=== PATIENT | female | born 1970 | race Caucasian/White ===

== ENCOUNTER 2017-01-07 05:31 | Inpatient (IN) | payer BC ==
[2017-01-07] MEDS ORDERED: ceFAZolin 2 GM in Premix Bag 1 BAG IV ONE (05:41)
[2017-01-07] MEDS ORDERED: Sodium Chloride 0.9% 10 ML Syringe FLUSH PRN (05:41)
[2017-01-07] MEDS ORDERED: Citric Acid/Sodium Citrate Solution 30 ML Cup PO SCH (05:45)
[2017-01-07] MEDS: Lactated Ringers 1,000 ML IV SCH ×2 (06:08→07:20)
[2017-01-07 06:34] LABS: CHLORIDE,CL 108 mmol/L (98-110); SODIUM,NA 136 mmol/L (136-146)
--- NOTE | 2017-01-07 07:28 | PCM.PREANE ---
Preanesthetic Assessment - Procedure Proposed Procedure: ; repeat - Anesthesia/Transfusion/Family Hx Anesthesia History: Prior Anesthesia Without Reaction Transfusion History: No Prior Transfusion(s) Intubation History: Unknown - Review of Systems General: No Symptoms Pulmonary: No Symptoms Cardiovascular: No Symptoms Gastrointestinal: Other (GERD of ) Neurological: No Symptoms Other: Reports: Diabetes (gestational - controlled wqith diet and glyburide), Depression, Anxiety - Physical Assessment Height: 5 ft 3 in Weight: 183 lb ASA Class: 3 Mental Status: Alert & Oriented x3 Airway Class: Mallampati = 1 Dentition: Reports: Normal Dentition Thyro-Mental Finger Breadths: 3 Mouth Opening Finger Breadths: 3 ROM/Head Extension: Full Lungs: Clear to auscultation, Normal respiratory effort Cardiovascular: Regular Rate, Regular Rhythm, No Murmurs - Lab Values: Laboratory Last Values WBC 10.51 K/uL (4.0-11.0) 01/07/17 06:03 RBC 4.74 M/uL (4.30-5.90) 01/07/17 06:03 Hgb 13.4 g/dL (12.0-16.0) 01/07/17 06:03 Hct 40.6 % (36.0-46.0) 01/07/17 06:03 MCV 85.7 fL (80.0-98.0) 01/07/17 06:03 MCH 28.3 pg (27.0-32.0) 01/07/17 06:03 MCHC 33.0 g/dL (31.0-37.0) 01/07/17 06:03 RDW Std Deviation 46.3 fl (28.0-62.0) 01/07/17 06:03 RDW Coeff of Kristin 15 % (11.0-15.0) 01/07/17 06:03 Plt Count 198 K/uL (150-400) 01/07/17 06:03 MPV 11.10 fL (7.40-12.00) 01/07/17 06:03 Nucleated RBC % 0.2 /100WBC 01/07/17 06:03 Nucleated RBCs # 0 K/uL 01/07/17 06:03 Sodium 136 mmol/L (136-146) 01/07/17 06:03 Potassium 4.0 mmol/L (3.5-5.1) 01/07/17 06:03 Chloride 108 mmol/L (98-110) 01/07/17 06:03 Carbon Dioxide 18 mmol/L (21-31) L 01/07/17 06:03 BUN 10 mg/dL (6.0-23.0) 01/07/17 06:03 Creatinine 0.7 mg/dL (0.6-1.5) 01/07/17 06:03 Est Cr Clr Drug Dosing 83.07 mL/min 01/07/17 06:03 Estimated GFR (MDRD) > 60.0 ml/min 01/07/17 06:03 Glucose 70 mg/dL (60-110) 01/07/17 06:03 POC Glucose 85 mg/dL (60-110) 01/07/17 06:03 Calcium 9.1 mg/dL (8.8-10.8) 01/07/17 06:03 Blood Type B POSITIVE 01/07/17 06:03 Antibody Screen NEGATIVE 01/07/17 06:03 - Allergies Allergies/Adverse Reactions: Allergies Allergy/AdvReac Type Severity Reaction Status Date / Time gluten Allergy Stomach Verified 01/05/17 08:29 Upset - Blood Blood Available: Yes Product(s) Available: PRBC - Anesthesia Plan Pre-Op Medication Ordered: Antacids - Acknowledgements Anesthesia Type Planned: Spinal Pt an Appropriate Candidate for the Planned Anesthesia: Yes Alternatives and Risks of Anesthesia Discussed w Pt/Guardian: Yes Pt/Guardian Understands and Agrees with Anesthesia Plan: Yes PreAnesthesia Questionnaire Gastrointestinal History: Reports: Other (see below) Other Gastrointestinal History: heartburn with Genitourinary History: Reports: None 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: Neurological History: Reports: Migraines Psychiatric History: Reports: Anxiety, Depression Endocrine/Metabolic History: Reports: Diabetes, gestational - Infectious Disease History Infectious Disease History: Reports: Chicken pox - Past Surgical History Head Surgeries/Procedures: Reports: None Female Surgical History: Reports: section - SUBSTANCE USE Smoking Status *Q: Never Smoker Second Hand Smoke Exposure: No Days Per Week of Alcohol Use: 1 Recreational Drug Use History: No - HOME MEDS Home Medications: Home Meds Vit W-Ca,Fe,FA(<1 mg) [ Vitamins] 1 tab PO DAILY 01/05/17 [ History] glyBURIDE [Glyburide] 5 mg PO DAILY 01/05/17 [History] - CURRENT (IN HOUSE) MEDS Current Meds: Current Medications Citric Acid/Sodium Citrate (Bicitra Solution) 30 ml PO .ONCE [facility]ARY GRACE Lactated Ringer's (Ringers, Lactated) 1,000 mls @ 500 mls/hr IV .BOLUS [facility]ARY GRACE Last Admin: 01/07/17 07:20 Dose: 500 mls/hr Sodium Chloride (Saline Flush) 10 ml FLUSH ASDIRECTED PRN PRN Reason: Keep Vein Open Sodium Chloride (Saline Flush) 2.5 ml FLUSH ASDIRECTED PRN PRN Reason: Keep Vein Open Discontinued Medications Cefazolin Sodium/Dextrose 2 gm (/ Premix) 50 mls @ 100 mls/hr IV ONETIME ONE Stop: 01/07/17 06:10
[2017-01-07] MEDS ORDERED: Octyl 2-Cyanoacrylate 1 Tube ONE (07:35)
[2017-01-07] MEDS ORDERED: Morphine PF 10 MG/10 ML SDV ONE (07:47)
[2017-01-07] MEDS ORDERED: Ondansetron 4 MG/2 ML SDV ONE (08:11)
[2017-01-07] MEDS ORDERED: Oxytocin 10 Units/1 ML SDV ONE (08:11)
[2017-01-07] MEDS ORDERED: ePHEDrine 50 MG/ML SDV ONE (08:19)
[2017-01-07] MEDS ORDERED: Phenylephrine/Normal Saline 100 MCG/ML 10 ML Syringe ONE (08:19)
[2017-01-07] MEDS ORDERED: Naloxone 0.4 MG/ML Syringe IVPUSH PRN (08:49)
[2017-01-07] MEDS ORDERED: fentaNYL 100 MCG/2 ML SDV IVPUSH PRN (08:49)
[2017-01-07] MEDS ORDERED: diphenhydrAMINE 50 MG/ML SDV IVPUSH PRN ×2 (08:49→09:25)
[2017-01-07] MEDS ORDERED: Nalbuphine 10 MG/1 ML Vial IVPUSH PRN (08:49)
[2017-01-07] MEDS ORDERED: Ibuprofen 800 MG Tab PO PRN (09:25)
[2017-01-07] MEDS ORDERED: Lanolin 100% Cream 7 GM Tube TOP PRN (09:25)
[2017-01-07] MEDS ORDERED: Ondansetron 4 MG/2 ML SDV IV PRN (09:25)
[2017-01-07] MEDS ORDERED: Bisacodyl 10 MG Supp RECTAL PRN (09:25)
[2017-01-07] MEDS ORDERED: Acetaminophen/oxyCODONE 325-5 MG Tab PO PRN (09:25)
[2017-01-07] MEDS ORDERED: Lactated Ringers 1,000 ML IV SCH (09:30)
[2017-01-07] MEDS: Ketorolac 30 MG/ML SDV IVPUSH SCH ×3 (09:55→21:27)
--- NOTE | 2017-01-07 15:03 | PCM48HPAN ---
Post Anesthesia Note - EVALUATION WITHIN 48HRS OF ANESTHETIC Vital Signs in Normal Range: Yes Patient Participated in Evaluation: Yes Respiratory Function Stable: Yes Airway Patent: Yes Cardiovascular Function Stable: Yes Hydration Status Stable: Yes Pain Control Satisfactory: Yes Nausea and Vomiting Control Satisfactory: Yes Mental Status Recovered: Yes
[2017-01-07] MEDS: Sodium Chloride 0.9% 2.5 ML Syringe FLUSH PRN ×2 (15:22→15:31)
--- NOTE | 2017-01-07 19:39 | PCM.OPNOTE ---
[id number] 4Bd Findings: Bladder was abnormally adhesed 1/3 of the anterior surface of the uterus. Normal uterus, tubes and ovaries. VMI in vtx presentation w/ APGARS of 8&9 and wt of 3990g, normal intact placenta w/ 3 vessel cord Pre Op Diagnosis: 1. IUP @ 39+1. 2. Prior LTCS. 3. Desires RLTCS. 4. A2DM. 5. AMA Post-Op Diagnosis: Same. Delivered Anesthesia Technique: Spinal Primary Surgeon: Domitila Maria Fluid Replacement, Intraop: 2,900 Output, Urine Amount: 200 EBL in mLs: 500 Complications: None known Condition: Good Free Text/Narrative:: Intake & Output 01/07/17 01/07/17 01/07/17 06:59 14:59 22:59 Intake Total 3200 Output Total 200 750 Balance 3000 -750 JobID#[id number]
[2017-01-07] MEDS: Docusate Sodium 100 MG Cap PO SCH (21:27)
[2017-01-07] MEDS: Acetaminophen/oxyCODONE 325-5 MG Tab PO PRN (23:23)
[2017-01-08] MEDS: Ketorolac 30 MG/ML SDV IVPUSH SCH ×2 (03:24→09:15)
[2017-01-08] MEDS: Acetaminophen/oxyCODONE 325-5 MG Tab PO PRN ×4 (03:27→23:14)
[2017-01-08] MEDS: Sodium Chloride 0.9% 2.5 ML Syringe FLUSH PRN (09:09)
[2017-01-08] MEDS: Docusate Sodium 100 MG Cap PO SCH ×2 (09:12→21:40)
--- NOTE | 2017-01-08 12:43 | PCM.PNPP ---
- General Info Date of Service: 01/08/17 Functional Status: Reports: pain controlled, tolerating diet, ambulating, urinating - Review of Systems General: Reports: No Symptoms HEENT: Reports: no symptoms Pulmonary: Reports: no symptoms Cardiovascular: Reports: No Symptoms Gastrointestinal: Reports: No symptoms Genitourinary: Reports: no symptoms Musculoskeletal: Reports: no symptoms Skin: Reports: no symptoms Neurological: Reports: No Symptoms Psychiatric: Reports: no symptoms - General Info Date of Service: 01/08/17 - Patient Data Vital Signs - most recent: Last Vital Signs Temp 36.7 C 01/08/17 08:00 Pulse 94 01/08/17 08:00 Resp 17 01/08/17 08:00 BP 108/54 L 01/08/17 08:00 Pulse Ox 95 01/08/17 08:00 Weight - most recent: 83.007 kg I&O - last 24 hours: Intake & Output 01/07/17 01/08/17 01/08/17 22:59 06:59 14:59 Output Total 2200 2350 Balance -2200 -2350 Lab Results - last 24 hrs: Laboratory Results - last 24 hr 01/08/17 Range/Units 06:10 Hgb 10.2 L (12.0-16.0) g/dL Hct 31.9 L (36.0-46.0) % Med Orders - Current: Current Medications Bisacodyl (Dulcolax) 10 mg RECTAL .ONCE PRN PRN Reason: Constipation Citric Acid/Sodium Citrate (Bicitra Solution) 30 ml PO .ONCE [facility] GRACE Last Admin: 01/07/17 07:44 Dose: 30 ml Diphenhydramine HCl (Benadryl) 25 mg IVPUSH Q6H PRN PRN Reason: Itching or Nausea Docusate Sodium (Colace) 100 mg PO BID [facility]ARY GRACE Last Admin: 01/08/17 09:12 Dose: 100 mg Emollient Ointment (Lansinoh Hpa) 0 gm TOP ASDIRECTED PRN PRN Reason: Sore Nipples Last Admin: 01/07/17 20:55 Dose: 1 gm Lactated Ringer's (Ringers, Lactated) 1,000 mls @ 500 mls/hr IV .BOLUS [facility] GRACE Last Admin: 01/07/17 07:20 Dose: 500 mls/hr Lactated Ringer's (Ringers, Lactated) 1,000 mls @ 125 mls/hr IV ASDIRECTED [facility]ARY GRACE Last Admin: 01/07/17 20:45 Dose: 125 mls/hr Ibuprofen (Motrin) 800 mg PO Q8H PRN PRN Reason: mild pain or fever Ondansetron HCl (Zofran) 4 mg IV Q4H PRN PRN Reason: Nausea/Vomiting Oxycodone/Acetaminophen (Percocet 325-5 Mg) 1 tab PO Q4H PRN PRN Reason: Pain (moderate 4-6) Oxycodone/Acetaminophen (Percocet 325-5 Mg) 2 tab PO Q4H PRN PRN Reason: Pain (moderate 4-6) Last Admin: 01/08/17 09:12 Dose: 2 tab Sodium Chloride (Saline Flush) 10 ml FLUSH ASDIRECTED PRN PRN Reason: Keep Vein Open Last Admin: 01/08/17 09:11 Dose: 10 ml Sodium Chloride (Saline Flush) 2.5 ml FLUSH ASDIRECTED PRN PRN Reason: Keep Vein Open Last Admin: 01/08/17 09:09 Dose: 2.5 ml Discontinued Medications Diphenhydramine HCl (Benadryl) 25 mg IVPUSH Q4H PRN PRN Reason: Itching Stop: 01/08/17 08:51 Ephedrine Sulfate (Ephedrine Sulfate) Confirm Administered Dose 50 mg .ROUTE .STK-MED ONE Stop: 01/07/17 08:20 Fentanyl (Sublimaze) 50 - 100 mcg IVPUSH Q30M PRN PRN Reason: Breakthrough Pain Stop: 01/08/17 08:50 Cefazolin Sodium/Dextrose 2 gm (/ Premix) 50 mls @ 100 mls/hr IV ONETIME ONE Stop: 01/07/17 06:10 Last Admin: 01/07/17 21:46 Dose: Not Given Ibuprofen (Motrin) 800 mg PO Q8H PRN PRN Reason: mild pain or fever Ketorolac Tromethamine (Toradol) 30 mg IVPUSH Q6H [facility] Stop: 01/08/17 09:31 Last Admin: 01/08/17 09:15 Dose: 30 mg Morphine Sulfate (Duramorph Pf) Confirm Administered Dose 10 mg .ROUTE .STK-MED ONE Stop: 01/07/17 07:48 Nalbuphine HCl (Nubain) 10 mg IVPUSH Q3H PRN PRN Reason: Pruritis Stop: 01/08/17 08:51 Last Admin: 01/07/17 15:21 Dose: 10 mg Naloxone HCl (Narcan) 0.1 mg IVPUSH ONETIME PRN PRN Reason: Respiratory Depression Stop: 01/08/17 08:51 Octyl Cyanoacrylate (Dermabond Advance) Confirm Administered Dose 1 applic .ROUTE .STK-MED ONE Stop: 01/07/17 07:36 Ondansetron HCl (Zofran) Confirm Administered Dose 4 mg .ROUTE .STK-MED ONE Stop: 01/07/17 08:12 Oxycodone/Acetaminophen (Percocet 325-5 Mg) 1 - 2 tab PO Q4H PRN PRN Reason: Breakthrough Pain Stop: 01/08/17 09:00 Last Admin: 01/08/17 03:27 Dose: 1 tab Oxytocin (Pitocin) Confirm Administered Dose 20 unit .ROUTE .STK-MED ONE Stop: 01/07/17 08:12 Phenylephrine HCl (Phenylephrine In Ns 100 Mcg/Ml) Confirm Administered Dose 1 mg .ROUTE .STK-MED ONE Stop: 01/07/17 08:20 - Interaction Disposition, : in Room with Family Interaction: Holding Infant Support Person: - Recovery Exam Fundal Tone: Firm Fundal Level: 1 Fingerbreadths Below Umbilicus Fundal Placement: Midline Lochia Amount: Scant Lochia Color: Rubra/Red Perineum Description: Intact, Minimal Bruising/Swelling Episiotomy/Laceration: None Bladder Status: Voiding Urinary Elimination: Voided - Exam General: alert, oriented Neck: supple Lungs: Clear to auscultation, Normal respiratory effort Cardiovascular: Regular Rate, Regular Rhythm Abdomen: bowel sounds present, soft, no tenderness Extremities: no calf tenderness Skin: warm, dry, intact Wound/Incisions: healing well Neurological: no new focal deficit Psy/Mental Status: alert, normal affect, normal mood - Problem List & Annotations (1) Status post repeat low transverse section SNOMED Code(s): 584750784, 531106386, 011162478, 076231123 Code(s): Z98.891 - HISTORY OF UTERINE SCAR FROM PREVIOUS SURGERY Status: Acute Current Visit: Yes - Problem List Review Problem List Initiated/Reviewed/Updated: Yes - My Orders Last 24 Hours: My Active Orders 01/07/17 21:00 Docusate Sodium [Colace] 100 mg PO BID 01/07/17 Dinner Regular Diet [DIET] 01/08/17 17:00 Ibuprofen [Motrin] 800 mg PO Q8H PRN - Assessment Assessment:: POD#1 S/p RLTCS Doing well OOB ambulating without difficulty - Plan Plan:: Increase ambulation Routine po/pp care
[2017-01-09] MEDS: Acetaminophen/oxyCODONE 325-5 MG Tab PO PRN ×4 (05:20→20:44)
[2017-01-09] MEDS: Ibuprofen 800 MG Tab PO PRN ×2 (08:36→16:18)
[2017-01-09] MEDS: Docusate Sodium 100 MG Cap PO SCH ×2 (11:01→20:44)
--- NOTE | 2017-01-09 12:45 | PCM.PNPP ---
- General Info Date of Service: 01/09/17 Functional Status: Reports: pain controlled, tolerating diet, ambulating, urinating - Review of Systems General: Reports: No Symptoms HEENT: Reports: no symptoms Pulmonary: Reports: no symptoms Cardiovascular: Reports: No Symptoms Gastrointestinal: Reports: No symptoms Genitourinary: Reports: no symptoms Musculoskeletal: Reports: no symptoms Skin: Reports: no symptoms Neurological: Reports: No Symptoms Psychiatric: Reports: no symptoms - General Info Date of Service: 01/09/17 - Patient Data Vital Signs - most recent: Last Vital Signs Temp 36.3 C 01/09/17 08:00 Pulse 86 01/09/17 08:00 Resp 17 01/09/17 08:00 BP 129/62 01/09/17 08:00 Pulse Ox 95 01/09/17 08:00 Weight - most recent: 83.007 kg Med Orders - Current: Current Medications Bisacodyl (Dulcolax) 10 mg RECTAL .ONCE PRN PRN Reason: Constipation Citric Acid/Sodium Citrate (Bicitra Solution) 30 ml PO .ONCE [facility] Last Admin: 01/07/17 07:44 Dose: 30 ml Diphenhydramine HCl (Benadryl) 25 mg IVPUSH Q6H PRN PRN Reason: Itching or Nausea Docusate Sodium (Colace) 100 mg PO BID [facility] Last Admin: 01/09/17 11:01 Dose: 100 mg Emollient Ointment (Lansinoh Hpa) 0 gm TOP ASDIRECTED PRN PRN Reason: Sore Nipples Last Admin: 01/07/17 20:55 Dose: 1 gm Lactated Ringer's (Ringers, Lactated) 1,000 mls @ 500 mls/hr IV .BOLUS [facility] Last Admin: 01/07/17 07:20 Dose: 500 mls/hr Lactated Ringer's (Ringers, Lactated) 1,000 mls @ 125 mls/hr IV ASDIRECTED [facility] Last Admin: 01/07/17 20:45 Dose: 125 mls/hr Ibuprofen (Motrin) 800 mg PO Q8H PRN PRN Reason: mild pain or fever Last Admin: 01/09/17 08:36 Dose: 800 mg Ondansetron HCl (Zofran) 4 mg IV Q4H PRN PRN Reason: Nausea/Vomiting Oxycodone/Acetaminophen (Percocet 325-5 Mg) 1 tab PO Q4H PRN PRN Reason: Pain (moderate 4-6) Last Admin: 01/08/17 15:29 Dose: 1 tab Oxycodone/Acetaminophen (Percocet 325-5 Mg) 2 tab PO Q4H PRN PRN Reason: Pain (moderate 4-6) Last Admin: 01/09/17 11:00 Dose: 2 tab Sodium Chloride (Saline Flush) 10 ml FLUSH ASDIRECTED PRN PRN Reason: Keep Vein Open Last Admin: 01/08/17 09:11 Dose: 10 ml Sodium Chloride (Saline Flush) 2.5 ml FLUSH ASDIRECTED PRN PRN Reason: Keep Vein Open Last Admin: 01/08/17 09:09 Dose: 2.5 ml Discontinued Medications Diphenhydramine HCl (Benadryl) 25 mg IVPUSH Q4H PRN PRN Reason: Itching Stop: 01/08/17 08:51 Ephedrine Sulfate (Ephedrine Sulfate) Confirm Administered Dose 50 mg .ROUTE .STK-MED ONE Stop: 01/07/17 08:20 Fentanyl (Sublimaze) 50 - 100 mcg IVPUSH Q30M PRN PRN Reason: Breakthrough Pain Stop: 01/08/17 08:50 Cefazolin Sodium/Dextrose 2 gm (/ Premix) 50 mls @ 100 mls/hr IV ONETIME ONE Stop: 01/07/17 06:10 Last Admin: 01/07/17 21:46 Dose: Not Given Ibuprofen (Motrin) 800 mg PO Q8H PRN PRN Reason: mild pain or fever Ketorolac Tromethamine (Toradol) 30 mg IVPUSH Q6H [facility]ACE Stop: 01/08/17 09:31 Last Admin: 01/08/17 09:15 Dose: 30 mg Morphine Sulfate (Duramorph Pf) Confirm Administered Dose 10 mg .ROUTE .STK-MED ONE Stop: 01/07/17 07:48 Nalbuphine HCl (Nubain) 10 mg IVPUSH Q3H PRN PRN Reason: Pruritis Stop: 01/08/17 08:51 Last Admin: 01/07/17 15:21 Dose: 10 mg Naloxone HCl (Narcan) 0.1 mg IVPUSH ONETIME PRN PRN Reason: Respiratory Depression Stop: 01/08/17 08:51 Octyl Cyanoacrylate (Dermabond Advance) Confirm Administered Dose 1 applic .ROUTE .STK-MED ONE Stop: 01/07/17 07:36 Ondansetron HCl (Zofran) Confirm Administered Dose 4 mg .ROUTE .STK-MED ONE Stop: 01/07/17 08:12 Oxycodone/Acetaminophen (Percocet 325-5 Mg) 1 - 2 tab PO Q4H PRN PRN Reason: Breakthrough Pain Stop: 01/08/17 09:00 Last Admin: 01/08/17 03:27 Dose: 1 tab Oxytocin (Pitocin) Confirm Administered Dose 20 unit .ROUTE .STK-MED ONE Stop: 01/07/17 08:12 Phenylephrine HCl (Phenylephrine In Ns 100 Mcg/Ml) Confirm Administered Dose 1 mg .ROUTE .STK-MED ONE Stop: 01/07/17 08:20 - Interaction Infant Disposition, : [place] in Room with Family Interaction: Holding Infant Support Person: - Recovery Exam Fundal Tone: Firm Fundal Level: 1 Fingerbreadths Below Umbilicus Fundal Placement: Midline Lochia Amount: Scant Lochia Color: Rubra/Red Perineum Description: Intact, Minimal Bruising/Swelling Episiotomy/Laceration: None Bladder Status: Voiding Urinary Elimination: Voided - Exam General: alert, oriented Neck: supple Lungs: Clear to auscultation, Normal respiratory effort Cardiovascular: Regular Rate, Regular Rhythm Abdomen: bowel sounds present, soft, no tenderness Extremities: no calf tenderness Skin: warm, dry, intact Wound/Incisions: healing well Neurological: no new focal deficit Psy/Mental Status: alert, normal affect, normal mood - Problem List & Annotations (1) Status post repeat low transverse section SNOMED Code(s): 351240064, 597987671, 200348739, 488079479 Code(s): Z98.891 - HISTORY OF UTERINE SCAR FROM PREVIOUS SURGERY Status: Acute Current Visit: Yes (2) Gestational diabetes mellitus (GDM) affecting second SNOMED Code(s): 17479550770088 Code(s): O24.419 - GESTATIONAL DIABETES MELLITUS IN , UNSP CONTROL; O09.40 - SUPERVISION OF W GRAND MULTIPARITY, UNSP TRIMESTER Status: Acute Current Visit: Yes - Problem List Review Problem List Initiated/Reviewed/Updated: Yes - My Orders Last 24 Hours: My Active Orders 01/08/17 17:00 Ibuprofen [Motrin] 800 mg PO Q8H PRN - Assessment Assessment:: POD#2 S/p RLTCS Doing well OOB ambulating without difficulty Milk has come in - Plan Plan:: Routine po/pp care Discharge home in the am
[2017-01-10] MEDS: Ibuprofen 800 MG Tab PO PRN ×2 (01:01→08:54)
[2017-01-10] MEDS: Acetaminophen/oxyCODONE 325-5 MG Tab PO PRN ×3 (01:02→14:15)
[2017-01-10] MEDS: Docusate Sodium 100 MG Cap PO SCH (08:52)
--- NOTE | 2017-01-10 10:00 | PCM.PNPP ---
- General Info Date of Service: 01/10/17 Functional Status: Reports: pain controlled, tolerating diet, ambulating, urinating - Review of Systems General: Reports: No Symptoms HEENT: Reports: no symptoms Pulmonary: Reports: no symptoms Cardiovascular: Reports: No Symptoms Gastrointestinal: Reports: No symptoms Genitourinary: Reports: no symptoms Musculoskeletal: Reports: no symptoms Skin: Reports: no symptoms Neurological: Reports: No Symptoms Psychiatric: Reports: no symptoms - General Info Date of Service: 01/10/17 - Patient Data Vital Signs - most recent: Last Vital Signs Temp 36.4 C 01/09/17 20:00 Pulse 82 01/09/17 20:00 Resp 16 01/09/17 20:00 BP 138/66 01/09/17 20:00 Pulse Ox 97 01/09/17 20:00 Weight - most recent: 83.007 kg Med Orders - Current: Current Medications Bisacodyl (Dulcolax) 10 mg RECTAL .ONCE PRN PRN Reason: Constipation Citric Acid/Sodium Citrate (Bicitra Solution) 30 ml PO .ONCE [facility] Last Admin: 01/07/17 07:44 Dose: 30 ml Diphenhydramine HCl (Benadryl) 25 mg IVPUSH Q6H PRN PRN Reason: Itching or Nausea Docusate Sodium (Colace) 100 mg PO BID [facility] Last Admin: 01/10/17 08:52 Dose: 100 mg Emollient Ointment (Lansinoh Hpa) 0 gm TOP ASDIRECTED PRN PRN Reason: Sore Nipples Last Admin: 01/07/17 20:55 Dose: 1 gm Lactated Ringer's (Ringers, Lactated) 1,000 mls @ 500 mls/hr IV .BOLUS [facility] Last Admin: 01/07/17 07:20 Dose: 500 mls/hr Lactated Ringer's (Ringers, Lactated) 1,000 mls @ 125 mls/hr IV ASDIRECTED [facility] Last Admin: 01/07/17 20:45 Dose: 125 mls/hr Ibuprofen (Motrin) 800 mg PO Q8H PRN PRN Reason: mild pain or fever Last Admin: 01/10/17 08:54 Dose: 800 mg Ondansetron HCl (Zofran) 4 mg IV Q4H PRN PRN Reason: Nausea/Vomiting Oxycodone/Acetaminophen (Percocet 325-5 Mg) 1 tab PO Q4H PRN PRN Reason: Pain (moderate 4-6) Last Admin: 01/08/17 15:29 Dose: 1 tab Oxycodone/Acetaminophen (Percocet 325-5 Mg) 2 tab PO Q4H PRN PRN Reason: Pain (moderate 4-6) Last Admin: 01/10/17 08:52 Dose: 2 tab Sodium Chloride (Saline Flush) 10 ml FLUSH ASDIRECTED PRN PRN Reason: Keep Vein Open Last Admin: 01/08/17 09:11 Dose: 10 ml Sodium Chloride (Saline Flush) 2.5 ml FLUSH ASDIRECTED PRN PRN Reason: Keep Vein Open Last Admin: 01/08/17 09:09 Dose: 2.5 ml Discontinued Medications Diphenhydramine HCl (Benadryl) 25 mg IVPUSH Q4H PRN PRN Reason: Itching Stop: 01/08/17 08:51 Ephedrine Sulfate (Ephedrine Sulfate) Confirm Administered Dose 50 mg .ROUTE .STK-MED ONE Stop: 01/07/17 08:20 Fentanyl (Sublimaze) 50 - 100 mcg IVPUSH Q30M PRN PRN Reason: Breakthrough Pain Stop: 01/08/17 08:50 Cefazolin Sodium/Dextrose 2 gm (/ Premix) 50 mls @ 100 mls/hr IV ONETIME ONE Stop: 01/07/17 06:10 Last Admin: 01/07/17 21:46 Dose: Not Given Ibuprofen (Motrin) 800 mg PO Q8H PRN PRN Reason: mild pain or fever Ketorolac Tromethamine (Toradol) 30 mg IVPUSH Q6H [facility] Stop: 01/08/17 09:31 Last Admin: 01/08/17 09:15 Dose: 30 mg Morphine Sulfate (Duramorph Pf) Confirm Administered Dose 10 mg .ROUTE .STK-MED ONE Stop: 01/07/17 07:48 Nalbuphine HCl (Nubain) 10 mg IVPUSH Q3H PRN PRN Reason: Pruritis Stop: 01/08/17 08:51 Last Admin: 01/07/17 15:21 Dose: 10 mg Naloxone HCl (Narcan) 0.1 mg IVPUSH ONETIME PRN PRN Reason: Respiratory Depression Stop: 01/08/17 08:51 Octyl Cyanoacrylate (Dermabond Advance) Confirm Administered Dose 1 applic .ROUTE .STK-MED ONE Stop: 01/07/17 07:36 Ondansetron HCl (Zofran) Confirm Administered Dose 4 mg .ROUTE .STK-MED ONE Stop: 01/07/17 08:12 Oxycodone/Acetaminophen (Percocet 325-5 Mg) 1 - 2 tab PO Q4H PRN PRN Reason: Breakthrough Pain Stop: 01/08/17 09:00 Last Admin: 01/08/17 03:27 Dose: 1 tab Oxytocin (Pitocin) Confirm Administered Dose 20 unit .ROUTE .STK-MED ONE Stop: 01/07/17 08:12 Phenylephrine HCl (Phenylephrine In Ns 100 Mcg/Ml) Confirm Administered Dose 1 mg .ROUTE .STK-MED ONE Stop: 01/07/17 08:20 - Interaction Infant Disposition, : [place] in Room with Family Interaction: Holding Infant Infant Feeding: Attempted ; Nursed Fair/Poor Support Person: - Recovery Exam Fundal Tone: Firm Fundal Level: At Umbilicus Fundal Placement: Midline Lochia Amount: Scant Lochia Color: Rubra/Red Perineum Description: Intact, Minimal Bruising/Swelling Episiotomy/Laceration: None Bladder Status: Voiding Urinary Elimination: Voided - Exam General: alert, oriented Neck: supple Lungs: Clear to auscultation, Normal respiratory effort Cardiovascular: Regular Rate, Regular Rhythm Abdomen: bowel sounds present, soft, no tenderness Extremities: no calf tenderness Skin: warm, dry, intact Wound/Incisions: healing well Neurological: no new focal deficit Psy/Mental Status: alert, normal affect, normal mood - Problem List & Annotations (1) Status post repeat low transverse section SNOMED Code(s): 672544703, 856933184, 909660387, 324004379 Code(s): Z98.891 - HISTORY OF UTERINE SCAR FROM PREVIOUS SURGERY Status: Acute Current Visit: Yes (2) Gestational diabetes mellitus (GDM) affecting second SNOMED Code(s): 11405151462555 Code(s): O24.419 - GESTATIONAL DIABETES MELLITUS IN , UNSP CONTROL; O09.40 - SUPERVISION OF W GRAND MULTIPARITY, UNSP TRIMESTER Status: Acute Current Visit: Yes - Problem List Review Problem List Initiated/Reviewed/Updated: Yes - My Orders Last 24 Hours: My Active Orders 01/10/17 15:00 Ready for Discharge [RC] PER UNIT ROUTINE - Assessment Assessment:: POD#3 S/p RLTCS Doing well Discharge home today - Plan Plan:: Discharge home today with follow up in 2wks and 6wks Incision cares instructions given Pelvic rest for 6wks Bleeding precautions Infection precautions given Thrombotic precautions blues/depression precautions
[2017-01-10 12:23] VITALS: BP 121/66
--- NOTE | 2017-01-12 05:57 | OR ---
SURGEON: Domitila Maria DATE OF PROCEDURE: 01/07/2017 BRIEF PREOPERATIVE HISTORY: This is a 46-year-old, G2, P1, who was presenting for a repeat low transverse section. The patient was apprised of risk of repeat low transverse section being bleeding, infection, poor wound healing, possible damage to the bowel, bladder, ureters, blood vessels, nerves, bladder, or any other adjacent structures in the pelvis. The patient was also apprised of the surgical risk of thromboembolic disease in addition to risk of anesthesia. Knowing all of the above, the patient desired to go forward with a repeat low transverse section as patient has had a prior with her first delivery. PREOPERATIVE DIAGNOSES: 1. Intrauterine at 39 weeks and 1 day. 2. Prior low transverse section. 3. Desires repeat low transverse section. 4. A2 diabetic, in , controlled on p.o. glyburide q.h.s. and in the a.m. 5. Elderly gravid. POSTOPERATIVE DIAGNOSES: 1. Intrauterine at 39 weeks and 1 day. 2. Prior low transverse section. 3. Desires repeat low transverse section. 4. A2 diabetic, in , controlled on p.o. glyburide q.h.s. and in the a.m. 5. Elderly gravid. 6. Delivered status. PROCEDURES PERFORMED: 1. Repeat low transverse section. 2. Lysis of bladder adhesions. ANESTHESIA: Spinal. ESTIMATED BLOOD LOSS: 500 mL. URINE OUTPUT: 200 mL of clear urine at the end of procedure. IV FLUIDS: 2900 mL of crystalloid. FINDINGS: Bladder was abnormally adhesed to the lower one-third of the anterior surface of the uterus. Normal uterus, otherwise tubes and ovaries bilaterally. Viable male infant in vertex presentation with Apgars of 8 and 9 at 1 and 5 minutes respectively and weight of 3990 g. Normal intact placenta with a 3-vessel cord. COMPLICATIONS: None known. CONDITION: Postop was good. The patient and tolerated the procedure well. DESCRIPTION OF PROCEDURE: The patient was taken to the OR, where patient was with Venodynes intact. Prior to the placement of spinal anesthesia, Venodynes were on and active. After spinal anesthesia, the patient was laid down and Casas catheter was placed. heart tones were auscultated. Afterwards, the patient was cleansed and was placed in a dorsal lithotomy position with a leftward tilt. The patient was then cleansed and prepped and draped in the normal sterile fashion. Prior to the start of surgery, a time-out was held to ensure appropriate patient, appropriate position, and appropriate procedure. The patient was also known to have received 2 g of IV Ancef prior to start of the procedure. Prior to incision, the patient was tested with an Allis clamp and the patient was not feeling any sensations of pain. Attention then was turned to the patient's abdomen, where a fresh scalpel blade was used to overscore and underscore the patient's previous Pfannenstiel incision which was noted to be much higher than the normal 2 fingerbreadths above the pubic bones. It was decided that we will go with the same incision, so once over and underscoring the prior incision, the prior scar tissue was removed and sent for disposal. A Bovie was used to dissect the adipose down to the layer of fascia. The fascia was incised in the midline and extended laterally with the Bovie. The superior aspect of fascial incision was then grasped with the [place] clamps, and the rectus muscles were dissected off bluntly and then sharply with the Bovie. Attention then was turned to the inferior aspect of the same incision which in a similar fashion, the fascia was tented up and the rectus muscles dissected off bluntly and then sharply with the Bovie. Attention then was turned to the patient's midline. On either side of the linea, an Allis clamp was placed and then the anterior abdominal wall was tented up. The linea was carefully scored until the peritoneal cavity had been breeched. With a small window in the peritoneal cavity, the index digit was placed through the defect and the index finger was swept in a clockwise manner to note if there were any abnormal adhesions and there were none noted to the anterior abdominal wall. The peritoneal incision was then extended superiorly and carefully inferiorly. The peritoneal access was then increased with lateral blunt stretching. Once increased access to the peritoneal cavity, it was noted that the bladder was adhesed up the lower one-third of the uterus. An Obed self-retaining retractor was then placed in the patient's abdomen and set. The bladder flap was dissected down sharply with the Metzenbaum scissors. The bladder flap was eventually able to be created. A fresh scalpel blade was used to create the hysterotomy in the lower uterine segment in a transverse fashion. The hysterotomy incision then was extended in the anterior-posterior direction to prevent excess extension out to the lateral uterine vessels. Once the amniotic fluid was reached, it was noted to be meconium-stained. The vertex was brought through the hysterotomy incision followed by the body. had a spontaneous cry at delivery. was aggressively bulb suctioned. Cord was doubly clamped and cut. was taken over to the waiting baby nurse. Cord blood was collected and sent for analysis. Afterwards, the IV Pitocin was given as an uterotonic to prevent excessive maternal blood loss. The placenta was removed manually and cleared of all clots and debris. The first layer of the hysterotomy incision was closed with 0 Vicryl suture in a running, locked fashion with a CTX needle. A second layer of the same suture was used for the imbricating layer. During the course of placing the imbricating layer, an occasional imbricating suture was locked secondary to little excess bleeding. Of note, the patient also had a hematoma that was forming on the superior aspect of the hysterotomy incision. Pressure was placed on the hematoma and it was not noted to spread. Afterwards, two single [id number]'s were placed over the hysterotomy incision to have better hemostasis. After placement, hemostasis was noted to be excellent. At this point, pressure was placed in the lower uterine segment, and the ovaries and tubes were inspected bilaterally and noted to be normal. Afterwards, the hysterotomy incision was reinspected and hemostasis was noted to be excellent. The peritoneum and rectus muscles were closed with 0 Vicryl suture in a running mattress suture. The fascia was closed with 0 Vicryl suture in a running fashion. The adipose tissue was reapproximated with 3-0 plain gut suture. The skin was reapproximated with 3-0 Prolene suture in a running fashion. The remainder of the suture was tied and affixed to the patient's anterior abdominal wall with Mastisol and Steri-Strips. A Telfa and a pressure dressing were placed. The patient was eventually moved to her bed with her abdominal binder. The patient went to Recovery in awake and stable condition. The patient and tolerated the procedure well. Sponge, lap, needle, and instrument counts were correct on every count. NEWLAVERNOL / MODL /[id number] RENAN
== END 2017-01-10 17:35 | disposition home or self-care (01) | DRG 540 ==
LOC: MW.OB 05:31
PROVIDERS: ADMIT Obstetrics & Gynecology; ATTEND Obstetrics & Gynecology
PROC: 10D00Z1 Extraction of Products of Conception, Low, Open Approach (ICD-10-PCS; principal; 2017-01-07)
DX: O24.425 Gestational diabetes mellitus in childbirth, controlled by oral hypoglycemic drugs (principal); O09.523 Supervision of elderly multigravida, third trimester; Z3A.39 39 weeks gestation of pregnancy; Z37.0 Single live birth
CPT/HCPCS: 01961; 36415; 80048; 82962; 85014; 85018; 85027; 86850; 86900; 86901; A9270-GY; J1885; J2270; J2300; J2405; J2590; J7120

== ENCOUNTER 2017-10-07 10:36 | Emergency (ER) | payer BC ==
[2017-10-07 11:01] VITALS: BP 137/86
[2017-10-07] MEDS ORDERED: Sodium Chloride 0.9% 10 ML Syringe FLUSH PRN (11:08)
[2017-10-07] MEDS ORDERED: Sodium Chloride 0.9% 2.5 ML Syringe FLUSH PRN (11:08)
[2017-10-07] MEDS ORDERED: Ketorolac 30 MG/ML SDV IVPUSH ONE (11:09)
--- NOTE | 2017-10-07 11:23 | EDM.PDOC ---
ED HPI GENERAL MEDICAL PROBLEM - General Chief Complaint: Upper Extremity Injury/Pain Stated Complaint: FALL Time Seen by Provider: 10/07/17 11:20 Source of Information: Reports: Patient - History of Present Illness INITIAL COMMENTS - FREE TEXT/NARRATIVE: HISTORY AND PHYSICAL: []Presents after falling on the ice History of Present Illness: 46-year-old female presenting after falling on the ice hitting her shoulder head and her coccyx Review of Systems: As per history of present illness and below otherwise all systems reviewed and negative. Past medical history: As per history of present illness and as reviewed below otherwise noncontributory. Surgical history: As per history of present illness and as reviewed below otherwise noncontributory. Social history: No reported history of drug or alcohol abuse. Family history: As per history of present illness and as reviewed below otherwise noncontributory. Physical exam: Alert and oriented female who answers questions appropriately in full sentences without shortness of breath HEENT: Atraumatic, normocehpalic, pupils reactive, negative for conjunctival pallor or scleral icterus, mucous membranes moist, throat clear, neck supple, nontender, trachea midline. Lungs: Clear to auscultation, breath sounds equal bilaterally, chest non tender. Heart: S1S2, regular, negative for clicks, rubs, or JVD. Abdomen: Soft, nondistended, nontender. Negative for masses or hepatossplenmegaly. Negative for costovertebral tenderness. Pelvis: Stable nontender. Genitourinary: Deferred. Rectal: Deferred Extremities: Atraumatic, negative for cords or calf pain. is complaining of tingling pain to her right elbow mild minimal edema is present. Slight movement is of present with pain increasing Neurovascular unremarkable. Neuro: Awake, alert, oriented. Cranial nerves II through XII unremarkable. Cerebellum unremarkable. Motor and sensory unremarkable throughout. Exam nonfocal. Diagnostics: X-ray of right elbow and coccyx are negative Refusing CT of head] Therapeutics: [Toradol 30 mg IV] Impression: [Contusions] Plan: []Discharged to home Over the counter anti-inflammatories for discomfort Follow-up with her primary care provider in the next 2-3 days Definitive disposition and diagnosis as appropriate pending reevaluation and review of above. 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: Neurological History: Reports: Migraines Psychiatric History: Reports: Anxiety, Depression Endocrine/Metabolic History: Reports: Diabetes, Gestational - Infectious Disease History Infectious Disease History: Reports: Chicken Pox - Past Surgical History Head Surgeries/Procedures: Reports: None Female Surgical History: Reports: Section Social & Family History - Family History Family Medical History: Unobtainable Psychiatric: Reports: Bipolar, Depression - Tobacco Use Smoking Status *Q: Never Smoker Second Hand Smoke Exposure: No - Caffeine Use Caffeine Use: Reports: None - Alcohol Use Days Per Week of Alcohol Use: 1 - Recreational Drug Use Recreational Drug Use: No Drug Use in Last 12 Months: No Review of Systems - Review of Systems Review Of Systems: ROS reveals no pertinent complaints other than HPI. ED EXAM, GENERAL - Physical Exam Exam: See Below (see dictation) Course - Vital Signs Last Recorded V/S: Last Vital Signs Temp 35.4 C 10/07/17 10:48 Pulse 84 10/07/17 10:48 Resp 18 10/07/17 10:48 BP 137/86 10/07/17 10:48 Pulse Ox 97 10/07/17 10:48 - Orders/Labs/Meds Orders: Active Orders 24 hr Category Date Time Status Splinting [RC] ASDIRECTED Care 10/07/17 13:07 Ordered Sodium Chloride 0.9% [Saline Flush] Med 10/07/17 11:08 Active 10 ml FLUSH ASDIRECTED PRN Sodium Chloride 0.9% [Saline Flush] Med 10/07/17 11:08 Active 2.5 ml FLUSH ASDIRECTED PRN Saline Lock Insert [OM.PC] Stat Oth 10/07/17 11:07 Ordered Medication Orders Sodium Chloride (Saline Flush) 10 ml FLUSH ASDIRECTED PRN PRN Reason: Keep Vein Open Last Admin: 10/07/17 11:33 Dose: 10 ml Sodium Chloride (Saline Flush) 2.5 ml FLUSH ASDIRECTED PRN PRN Reason: Keep Vein Open Last Admin: 10/07/17 11:33 Dose: 2.5 ml Labs: Laboratory Tests 10/07/17 10/07/17 Range/Units 11:30 11:30 WBC 7.11 (4.0-11.0) K/uL RBC 5.15 (4.30-5.90) M/uL Hgb 15.1 (12.0-16.0) g/dL Hct 45.0 (36.0-46.0) % MCV 87.4 (80.0-98.0) fL MCH 29.3 (27.0-32.0) pg MCHC 33.6 (31.0-37.0) g/dL RDW Std Deviation 42.7 (28.0-62.0) fl RDW Coeff of Kristin 14 (11.0-15.0) % Plt Count 285 (150-400) K/uL MPV 11.30 (7.40-12.00) fL Neut % (Auto) 67.5 (48.0-80.0) % Lymph % (Auto) 24.1 (16.0-40.0) % [place] % (Auto) 6.8 (0.0-15.0) % Eos % (Auto) 1.3 (0.0-7.0) % Baso % (Auto) 0.3 (0.0-1.5) % Neut # (Auto) 4.8 (1.4-5.7) K/uL Lymph # (Auto) 1.7 (0.6-2.4) K/uL [place] # (Auto) 0.5 (0.0-0.8) K/uL Eos # (Auto) 0.1 (0.0-0.7) K/uL Baso # (Auto) 0.0 (0.0-0.1) K/uL Nucleated RBC % 0.0 /100WBC Nucleated RBCs # 0 K/uL Sodium 141 (136-146) mmol/L Potassium 4.4 (3.5-5.1) mmol/L Chloride 108 (98-110) mmol/L Carbon Dioxide 22 (21-31) mmol/L BUN 12 (6.0-23.0) mg/dL Creatinine 0.8 (0.6-1.5) mg/dL Est Cr Clr Drug Dosing 69.50 mL/min Estimated GFR (MDRD) > 60.0 ml/min Glucose 95 (60-110) mg/dL Calcium 9.7 (8.8-10.8) mg/dL Total Bilirubin 0.6 (0.1-1.5) mg/dL AST 19 (5-40) IU/L ALT 23 (8-54) IU/L Alkaline Phosphatase 74 (40-150) Total Protein 7.6 (6.0-8.0) g/dL Albumin 4.5 (3.5-5.0) g/dL Globulin 3.1 (2.0-3.5) g/dL Albumin/Globulin Ratio 1.5 (1.3-2.8) Meds: Medications Generic Name Dose Route Start Last Admin Trade Name Freq PRN Reason Stop Dose Admin Sodium Chloride 10 ml 10/07/17 11:08 10/07/17 11:33 Saline Flush FLUSH 10 ml ASDIRECTED PRN Administration Keep Vein Open Sodium Chloride 2.5 ml 10/07/17 11:08 10/07/17 11:33 Saline Flush FLUSH 2.5 ml ASDIRECTED PRN Administration Keep Vein Open Discontinued Medications Generic Name Dose Route Start Last Admin Trade Name Freq PRN Reason Stop Dose Admin Ketorolac Tromethamine 30 mg 10/07/17 11:09 10/07/17 11:33 Toradol IVPUSH 10/07/17 11:10 30 mg ONETIME ONE Administration Departure - Departure Time of Disposition: 13:09 Disposition: Home, Self-Care 01 Condition: Good Clinical Impression: Contusion of right elbow Qualifiers: Encounter type: initial encounter Qualified Code(s): S50.01XA - Contusion of right elbow, initial encounter - Discharge Information Instructions: How to Use a Sling, [id number] Referrals: PCP,None [Primary Care Provider] - Forms: ED Department Discharge Additional Instructions: The following information is given to patients seen in the emergency department who are being discharged to home. This information is to outline your options for follow-up care. We provide all patients seen in our emergency department with a follow-up referral. The need for follow-up, as well as the timing and circumstances, are variable depending upon the specifics of your emergency department visit. If you don't have a primary care physician on staff, we will provide you with a referral. We always advise you to contact your personal physician following an emergency department visit to inform them of the circumstance of the visit and for follow-up with them and/or the need for any referrals to a consulting specialist. The emergency department will also refer you to a specialist when appropriate. This referral assures that you have the opportunity for followup care with a specialist. All of these measure are taken in an effort to provide you with optimal care, which includes your followup. Under all circumstances we always encourage you to contact your private physician who remains a resource for coordinating your care. When calling for followup care, please make the office aware that this follow-up is from your recent emergency room visit. If for any reason you are refused follow-up, please contact the [facility] emergency department at and asked to speak to the emergency department charge nurse. Follow-up with your primary care provider in the next 2-3 days [id number] anti-inflammatories for the injuries he received No fractures were noted on physical examination or on x-rays Any worsening of symptoms please return for further evaluation over the weekend - My Orders Last 24 Hours: My Active Orders 10/07/17 11:07 Saline Lock Insert [OM.PC] Stat 10/07/17 11:08 Sodium Chloride 0.9% [Saline Flush] 10 ml FLUSH ASDIRECTED PRN Sodium Chloride 0.9% [Saline Flush] 2.5 ml FLUSH ASDIRECTED PRN 10/07/17 13:07 Splinting [RC] ASDIRECTED - Assessment/Plan Last 24 Hours: My Active Orders 10/07/17 11:07 Saline Lock Insert [OM.PC] Stat 10/07/17 11:08 Sodium Chloride 0.9% [Saline Flush] 10 ml FLUSH ASDIRECTED PRN Sodium Chloride 0.9% [Saline Flush] 2.5 ml FLUSH ASDIRECTED PRN 10/07/17 13:07 Splinting [RC] ASDIRECTED
--- NOTE | 2017-10-07 12:13 | CR ---
EXAMINATION: Right elbow HISTORY: Fall COMPARISON: None TECHNIQUE: 3 views FINDINGS/IMPRESSION: There is no acute osseous abnormality, dislocation, or fracture. Bone mineraliza tion and joint spaces appear normal. No soft tissue swelling or joint effusion.
[2017-10-07 12:48] LABS: CHLORIDE,CL 108 mmol/L (98-110); SODIUM,NA 141 mmol/L (136-146)
--- NOTE | 2017-10-07 12:59 | CR ---
EXAMINATION: Sacrum and coccyx HISTORY: Pain COMPARISON: None TECHNIQUE: AP and lateral views FINDINGS: The sacrum appears intact. The coccyx is likely normal. SI joints are symmetric. There is a n IUD noted projecting over the pelvis. Hip joint spaces are preserved. No fracture or acute osseous abnormality. IMPRESSION: No acute osseous abnormality identified.
== END 2017-10-07 13:48 | disposition home or self-care (01) ==
LOC: MW.ED 10:36
DX: S50.01XA Contusion of right elbow, initial encounter (principal); F32.9 Major depressive disorder, single episode, unspecified; Z91.018 Allergy to other foods; W00.0XXA Fall on same level due to ice and snow, initial encounter
CPT/HCPCS: 36415; 72220; 73080; 80053; 85025; 96374; 99283; J1885

== ENCOUNTER 2023-07-07 18:22 | Inpatient (IN) | payer SELFPAY ==
[2023-07-07] MEDS ORDERED: Ketorolac 30 MG/ML SDV IVPUSH ONE (19:32)
[2023-07-07 19:53] LABS: BASOPHILS ABSOLUTE AUTO 0.05 K/uL (0.00-0.20); BASOPHILS PERCENT AUTO 0.4 % (0.0-1.0); EOSINOPHILS ABSOLUTE AUTO 0.17 K/uL (0.00-0.45); EOSINOPHILS PERCENT AUTO 1.3 % (0.0-6.0); HEMATOCRIT 39.8 % (37.0-47.0); HEMOGLOBIN 13.4 g/dL (12.0-16.0); IMMATURE GRAN ABSOLUTE AUTO 0.04 K/uL (0.00-0.05); IMMATURE GRAN PERCENT AUTO 0.3 % (0.0-0.4); LYMPHOCYTES ABSOLUTE AUTO 2.74 K/uL (1.00-4.80); LYMPHOCYTES PERCENT AUTO 21.2 % (24.0-44.0); MEAN CORPUSCULAR HEMOGLOBIN 29.1 pg (28.0-32.0); MEAN CORPUSCULAR HGB CONC 33.7 g/dL (32.0-36.0); MEAN CORPUSCULAR VOLUME 86.5 fL (83.0-99.0); MEAN PLATELET VOLUME 11.1 fL (9.4-12.3); MONOCYTES PERCENT AUTO 7.7 % (0.0-8.0); NEUTROPHILS ABSOLUTE AUTO 8.91 K/uL (1.80-7.70); NEUTROPHILS PERCENT AUTO 69.1 % (41.0-71.0); PLATELET COUNT,PLT 269 K/uL (150-400); WHITE BLOOD CELL COUNT,WBC 12.91 K/uL (3.9-11.3)
[2023-07-07] MEDS ORDERED: Iopamidol 755 MG/ML 500 ML Multipack Bottle IVPUSH ONE (20:23)
[2023-07-07 20:35] LABS: A/G RATIO 1.1 (0.9-1.6); ALBUMIN 3.8 g/dL (3.4-5.0); BILIRUBIN TOTAL 0.5 mg/dL (0.2-1.0); CALCIUM 9.5 mg/dL (8.5-10.1); CARBON DIOXIDE,CO2 26.7 mmol/L (21.0-32.0); CREATININE 0.9 mg/dL (0.6-1.0); EST CRCL DRUG DOSING (CG) 57.83 mL/min; POTASSIUM,K 3.8 mmol/L (3.5-5.1); PROTEIN TOTAL,TP 7.3 g/dL (6.4-8.2)
[2023-07-07] MEDS ORDERED: Morphine 4 MG/ML Syringe IVPUSH ONE (23:18)
[2023-07-08] MEDS ORDERED: Sodium Chloride 0.9% 1,000 ML IV ONE (00:30)
[2023-07-08] MEDS ORDERED: cefTRIAXone 1 GM in Sodium Chloride 0.9% 50 ML IV ONE (00:30)
[2023-07-08] MEDS ORDERED: Morphine 4 MG/ML Syringe IVPUSH ONE (01:28)
[2023-07-08] MEDS: Morphine 2 MG/ML SYRINGE IVPUSH PRN ×3 (07:44→18:44)
[2023-07-08] MEDS: Sodium Chloride 0.9% 1,000 ML IV SCH ×2 (07:49→17:46)
[2023-07-08] MEDS ORDERED: FLU (Flulaval Quad) 2023-24(6MOS UP)/PF 60 MCG/0.5 ML Syringe IM ONE (10:00)
[2023-07-08] MEDS: metroNIDAZOLE/Normal Saline 500 MG in Premix Bag 1 BAG IV SCH ×2 (11:34→18:47)
[2023-07-08] MEDS: buPROPion 150 MG Tab.ER PO SCH (14:51)
[2023-07-09] MEDS ORDERED: cefTRIAXone 1 GM in Sodium Chloride 0.9% 50 ML IV SCH (01:00)
[2023-07-09] MEDS: Ondansetron 4 MG/2 ML SDV IVPUSH PRN ×2 (01:08→09:29)
[2023-07-09] MEDS: metroNIDAZOLE/Normal Saline 500 MG in Premix Bag 1 BAG IV SCH ×2 (03:26→11:26)
[2023-07-09] MEDS: Sodium Chloride 0.9% 1,000 ML IV SCH ×2 (03:27→11:25)
[2023-07-09] MEDS ORDERED: Acetaminophen 325 MG Tab PO PRN (05:03)
[2023-07-09] MEDS ORDERED: Acetaminophen 325 MG Tab ONE (05:05)
[2023-07-09 06:07] LABS: BASOPHILS ABSOLUTE AUTO 0.04 K/uL (0.00-0.20); BASOPHILS PERCENT AUTO 0.4 % (0.0-1.0); EOSINOPHILS ABSOLUTE AUTO 0.09 K/uL (0.00-0.45); HEMATOCRIT 38.5 % (37.0-47.0); HEMOGLOBIN 12.8 g/dL (12.0-16.0); IMMATURE GRAN ABSOLUTE AUTO 0.02 K/uL (0.00-0.05); IMMATURE GRAN PERCENT AUTO 0.2 % (0.0-0.4); LYMPHOCYTES PERCENT AUTO 19.4 % (24.0-44.0); MEAN CORPUSCULAR HEMOGLOBIN 28.8 pg (28.0-32.0); MEAN CORPUSCULAR HGB CONC 33.2 g/dL (32.0-36.0); MEAN CORPUSCULAR VOLUME 86.5 fL (83.0-99.0); MEAN PLATELET VOLUME 11.1 fL (9.4-12.3); MONOCYTES ABSOLUTE AUTO 0.46 K/uL (0.00-0.80); MONOCYTES PERCENT AUTO 4.9 % (0.0-8.0); NEUTROPHILS ABSOLUTE AUTO 6.89 K/uL (1.80-7.70); NEUTROPHILS PERCENT AUTO 74.1 % (41.0-71.0); PLATELET COUNT,PLT 243 K/uL (150-400); RED BLOOD CELL COUNT 4.45 M/uL (4.10-5.30)
[2023-07-09 06:38] LABS: ALBUMIN 3.3 g/dL (3.4-5.0); BILIRUBIN TOTAL 0.9 mg/dL (0.2-1.0); CALCIUM 8.6 mg/dL (8.5-10.1); CREATININE 0.7 mg/dL (0.6-1.0); EST CRCL DRUG DOSING (CG) 74.35 mL/min; POTASSIUM,K 3.4 mmol/L (3.5-5.1); PROTEIN TOTAL,TP 6.5 g/dL (6.4-8.2)
[2023-07-09] MEDS ORDERED: Potassium Chloride 20 MEQ Tab.ER PO ONE (07:42)
[2023-07-09] MEDS ORDERED: SUMAtriptan 50 MG Tab PO PRN (08:41)
[2023-07-09] MEDS ORDERED: Topiramate 100 MG Tab PO SCH (09:00)
[2023-07-09] MEDS: buPROPion 150 MG Tab.ER PO SCH (09:23)
[2023-07-09 15:57] VITALS: BP 149/86; PULSE 74
== END 2023-07-09 18:45 | disposition home or self-care (01) | DRG 446 ==
LOC: MW.ED 18:22 → MW.MS 07-08 01:29
PROVIDERS: ADMIT Internal Medicine; ATTEND Internal Medicine
DX: K80.42 Calculus of bile duct with acute cholecystitis without obstruction (principal); G43.909 Migraine, unspecified, not intractable, without status migrainosus; Z79.899 Other long term (current) drug therapy; F41.9 Anxiety disorder, unspecified; F32.A Depression, unspecified; Z98.890 Other specified postprocedural states; Z81.8 Family history of other mental and behavioral disorders
CPT/HCPCS: 36415; 74177; 74177-26; 74181; 74181-26; 76705; 76705-26; 80053; 82947; 83690; 85025; 93010; 96365; 96375; 99285; 99285-25; A9270-GY; J0696; J1885; J2270; J2405; J3490; J7030; Q9967

== ENCOUNTER 2023-07-26 11:00 | Day surgery (SDC) | payer SELFPAY ==
[~2023-07-26 11:00] MED LIST: Lactated Ringers 1,000 ML IV SCH; Sodium Chloride 0.9% 10 ML Syringe FLUSH PRN; Sodium Chloride 0.9% 2.5 ML Syringe FLUSH PRN; Sodium Chloride 0.9% 20 ML SDV IV PRN; ceFAZolin 2 GM in Sodium Chloride 0.9% 50 ML IV ONE
[2023-07-26] MEDS ORDERED: Ondansetron 4 MG/2 ML SDV IVPUSH PRN (11:43)
[2023-07-26] MEDS ORDERED: droPERidol 5 MG/2 ML SDV IVPUSH PRN (11:43)
[2023-07-26] MEDS ORDERED: Albuterol 0.083% 2.5 MG/3 ML Neb Soln NEB PRN (11:43)
[2023-07-26] MEDS ORDERED: Morphine 2 MG/ML SYRINGE IVPUSH PRN (11:43)
[2023-07-26] MEDS ORDERED: HYDROmorphone 1 MG/ML Syringe IVPUSH PRN (11:43)
[2023-07-26] MEDS ORDERED: Naloxone 0.4 MG/ML SDV IVPUSH PRN (11:43)
[2023-07-26] MEDS ORDERED: fentaNYL 50 MCG/ML SDV IVPUSH PRN (11:43)
[2023-07-26] MEDS ORDERED: Metoclopramide 10 MG/2 ML SDV IVPUSH PRN (11:43)
[2023-07-26] MEDS ORDERED: propofoL 50 ML ONE ×2 (11:56→13:06)
[2023-07-26] MEDS ORDERED: Propofol 200 MG/20 ML SDV ONE (11:56)
[2023-07-26] MEDS ORDERED: Morphine 10 MG/ML SDV ONE (11:57)
[2023-07-26] MEDS ORDERED: Ropivacaine 0.5% 5 MG/ML 30 ML SDV ONE (11:58)
[2023-07-26] MEDS ORDERED: Indocyanine Green 25 MG SDV ONE (12:03)
[2023-07-26] MEDS ORDERED: ceFAZolin 2 GM Vial ONE (12:03)
[2023-07-26] MEDS ORDERED: Ketamine 500 mg/10 ML MDV ONE (12:18)
[2023-07-26] MEDS ORDERED: fentaNYL 250 MCG/5 ML SDV ONE ×2 (12:18→12:58)
[2023-07-26] MEDS ORDERED: Bupivacaine 0.5% 30 ML SDV ONE (12:20)
[2023-07-26] MEDS ORDERED: Dexmedetomidine 200 MCG/2 ML SDV ONE (12:46)
[2023-07-26] MEDS ORDERED: Lidocaine 2% 11 ML Jelly Filled Syringe ONE (13:07)
[2023-07-26] MEDS ORDERED: Ondansetron 4 MG/2 ML SDV ONE (13:07)
[2023-07-26] MEDS ORDERED: Dexamethasone 4 MG/ML 5 ML MDV ONE (13:07)
[2023-07-26] MEDS ORDERED: Sugammadex Sodium 200 MG/2 ML VIAL ONE (13:07)
[2023-07-26 16:24] VITALS: BP 110/58; PULSE 66
== END 2023-07-26 17:00 | disposition home or self-care (01) ==
LOC: MW.SDS 11:00
PROVIDERS: ATTEND Surgery
DX: K80.12 Calculus of gallbladder with acute and chronic cholecystitis without obstruction (principal); F41.8 Other specified anxiety disorders; G43.009 Migraine without aura, not intractable, without status migrainosus; Z88.8 Allergy status to other drugs, medicaments and biological substances; Z80.0 Family history of malignant neoplasm of digestive organs; Z79.899 Other long term (current) drug therapy
CPT/HCPCS: 47562; 64488; A9270; J0690; J1100; J2270; J2405; J2704; J2795; J3010; J3490; J7120; 00790

== ENCOUNTER 2023-07-27 09:21 | Observation (INO) | payer SELFPAY ==
[2023-07-27] MEDS ORDERED: Morphine 4 MG/ML Syringe IVPUSH ONE (10:03)
[2023-07-27] MEDS ORDERED: Ondansetron 4 MG/2 ML SDV IVPUSH ONE (10:03)
[2023-07-27] MEDS ORDERED: Sodium Chloride 0.9% 1,000 ML IV ONE ×2 (10:03→11:43)
[2023-07-27 10:55] LABS: BASOPHILS ABSOLUTE AUTO 0.02 K/uL (0.00-0.20); BASOPHILS PERCENT AUTO 0.1 % (0.0-1.0); HEMATOCRIT 39.1 % (37.0-47.0); HEMOGLOBIN 13.3 g/dL (12.0-16.0); IMMATURE GRAN ABSOLUTE AUTO 0.08 K/uL (0.00-0.05); IMMATURE GRAN PERCENT AUTO 0.4 % (0.0-0.4); LYMPHOCYTES ABSOLUTE AUTO 1.53 K/uL (1.00-4.80); LYMPHOCYTES PERCENT AUTO 7.8 % (24.0-44.0); MEAN CORPUSCULAR HEMOGLOBIN 29.2 pg (28.0-32.0); MEAN CORPUSCULAR VOLUME 85.7 fL (83.0-99.0); MEAN PLATELET VOLUME 10.7 fL (9.4-12.3); MONOCYTES ABSOLUTE AUTO 0.94 K/uL (0.00-0.80); MONOCYTES PERCENT AUTO 4.8 % (0.0-8.0); NEUTROPHILS ABSOLUTE AUTO 17.06 K/uL (1.80-7.70); NEUTROPHILS PERCENT AUTO 86.9 % (41.0-71.0); PLATELET COUNT,PLT 283 K/uL (150-400); RED BLOOD CELL COUNT 4.56 M/uL (4.10-5.30); WHITE BLOOD CELL COUNT,WBC 19.63 K/uL (3.9-11.3)
[2023-07-27 11:29] LABS: ALBUMIN 3.5 g/dL (3.4-5.0); BILIRUBIN TOTAL 0.4 mg/dL (0.2-1.0); C-REACTIVE PROTEIN 2.1 mg/dL (<0.3); CALCIUM 9.4 mg/dL (8.5-10.1); CARBON DIOXIDE,CO2 25.2 mmol/L (21.0-32.0); CREATININE 0.6 mg/dL (0.6-1.0); EST CRCL DRUG DOSING (CG) 86.75 mL/min; MAGNESIUM 2.1 mg/dL (1.8-2.4); POTASSIUM,K 4.1 mmol/L (3.5-5.1); PROTEIN TOTAL,TP 7.1 g/dL (6.4-8.2)
[2023-07-27 11:30] LABS: LACTIC ACID 2.1 mmol/L (0.4-2.0)
[2023-07-27 13:14] LABS: BILIRUBIN,URINE NEGATIVE (NEGATIVE); COLOR,URINE YELLOW; GLUCOSE,URINE NEGATIVE (NEGATIVE); KETONES,URINE 40 mg/dL (NEGATIVE); LEUKOCYTE ESTERASE,URINE NEGATIVE (NEGATIVE); NITRITE,URINE NEGATIVE (NEGATIVE); OCCULT BLOOD,URINE TRACE-INTACT (NEGATIVE); PH,URINE 6.5 (5.0-8.0); PROTEIN,URINE NEGATIVE (NEGATIVE); UROBILINOGEN,URINE 0.2 EU/dL (<2.0)
[2023-07-27 13:29] LABS: APPEARANCE,URINE HAZY
[2023-07-27 13:30] LABS: BACTERIA,URINE FEW (NEGATIVE); EPITHELIAL CELLS,URINE FEW (NONE-FEW); MUCUS,URINE MODERATE (NONE-MOD); RBC,URINE 0-5 (0-2/HPF); WBC,URINE 0-5 (0-5/HPF)
[2023-07-27] MEDS ORDERED: Acetaminophen/oxyCODONE 325-5 MG Tab PO ONE (13:56)
[2023-07-27] MEDS ORDERED: Ondansetron 4 MG Tab.DIS PO ONE (14:04)
[2023-07-27] MEDS ORDERED: Sodium Chloride 0.9% 20 ML SDV IV PRN (15:39)
[2023-07-27] MEDS ORDERED: HYDROmorphone 1 MG/ML Syringe IVPUSH PRN (15:39)
[2023-07-27] MEDS ORDERED: Sodium Chloride 0.9% 10 ML Syringe FLUSH PRN (15:39)
[2023-07-27] MEDS ORDERED: Metoclopramide 10 MG/2 ML SDV IVPUSH PRN (15:39)
[2023-07-27] MEDS ORDERED: Polyethylene Glycol 3350 Powder 17 GM Packet PO PRN (15:39)
[2023-07-27] MEDS ORDERED: Promethazine 25 MG/ML SDV IM PRN (15:39)
[2023-07-27] MEDS ORDERED: diphenhydrAMINE 50 MG/ML SDV IVPUSH PRN (15:39)
[2023-07-27] MEDS ORDERED: Acetaminophen/oxyCODONE 325-5 MG Tab PO PRN (15:39)
[2023-07-27] MEDS ORDERED: Sodium Chloride 0.9% 2.5 ML Syringe FLUSH PRN (15:39)
[2023-07-27] MEDS: Ketorolac 30 MG/ML SDV IVPUSH SCH ×2 (16:13→21:55)
[2023-07-27] MEDS: Lactated Ringers 1,000 ML IV SCH (16:20)
[2023-07-27] MEDS: Ondansetron 4 MG/2 ML SDV IVPUSH PRN (17:05)
[2023-07-28] MEDS: Lactated Ringers 1,000 ML IV SCH (00:42)
[2023-07-28] MEDS: Ketorolac 30 MG/ML SDV IVPUSH SCH ×2 (04:25→10:40)
[2023-07-28 06:01] LABS: HEMATOCRIT 35.2 % (37.0-47.0); HEMOGLOBIN 11.6 g/dL (12.0-16.0); MEAN CORPUSCULAR HEMOGLOBIN 28.9 pg (28.0-32.0); MEAN CORPUSCULAR VOLUME 87.6 fL (83.0-99.0); MEAN PLATELET VOLUME 10.5 fL (9.4-12.3); PLATELET COUNT,PLT 251 K/uL (150-400); RED BLOOD CELL COUNT 4.02 M/uL (4.10-5.30); WHITE BLOOD CELL COUNT,WBC 13.62 K/uL (3.9-11.3)
[2023-07-28 06:34] LABS: ALBUMIN 3.1 g/dL (3.4-5.0); BILIRUBIN TOTAL 0.3 mg/dL (0.2-1.0); CALCIUM 8.4 mg/dL (8.5-10.1); CARBON DIOXIDE,CO2 25.4 mmol/L (21.0-32.0); CREATININE 0.8 mg/dL (0.6-1.0); EST CRCL DRUG DOSING (CG) 65.06 mL/min; POTASSIUM,K 3.3 mmol/L (3.5-5.1); PROTEIN TOTAL,TP 6.2 g/dL (6.4-8.2)
[2023-07-28] MEDS ORDERED: Omeprazole 20 MG Cap.CR PO SCH (07:30)
[2023-07-28] MEDS ORDERED: Cyclobenzaprine 5 MG Tab PO PRN (08:45)
[2023-07-28] MEDS: Ondansetron 4 MG/2 ML SDV IVPUSH PRN (11:25)
[2023-07-28 15:37] VITALS: BP 135/72; PULSE 77
== END 2023-07-28 15:30 | disposition home or self-care (01) ==
LOC: MW.ED 09:21 → MW.MS 15:54
PROVIDERS: ADMIT Surgery; ATTEND Surgery
DX: R11.10 Vomiting, unspecified (principal)
CPT/HCPCS: 36415; 80053; 81001; 83605; 83690; 83735; 85025; 85027; 86140; 96361; 96374; 96375; 96376; 99284; 99285-25; A9270-GY; G0378; J1885; J2270; J2405; J7030; J7120